=== PATIENT | female | born 1975 | race American Indian/Alaskan Native ===

== ENCOUNTER 2021-10-31 17:48 | Emergency (ER) | payer SELFPAY ==
[2021-10-31] MEDS ORDERED: ASPIRIN 325 MG TAB PO ONE (17:57)
--- NOTE | 2021-10-31 18:43 | XRay Report ---
CHEST 2 VIEWS INDICATION / CLINICAL INFORMATION: Chest pain. COMPARISON: One view of the chest from 06/25/2010. FINDINGS: SUPPORT DEVICES: None. HEART / MEDIASTINUM: No significant abnormality. LUNGS / PLEURA: No significant pulmonary abnormality. No significant pleural effusion. No pneumothora x. ADDITIONAL FINDINGS: No significant additional findings. IMPRESSION: 1. No acute abnormality of the chest. Signer Name: Michel Caban MD Signed: 10/31/2021 6:38 PM Workstation Name: [id number]
[2021-10-31 19:26] LABS: Basophils % (Auto) 0.5 % (0.0-1.8); Eosinophils % (Auto) 0.6 % (0.0-4.3); Hematocrit 36.7 % (30.3-42.9); Hemoglobin 11.7 gm/dl (10.1-14.3); Lymphocytes # (Auto) 2.1 K/mm3 (1.2-5.4); Lymphocytes % (Auto) 45.3 % (13.4-35.0); Mean Corpuscular HGB Conc 32 % (30-34); Mean Corpuscular Volume 91 fl (79-97); Monocytes # (Auto) 0.4 K/mm3 (0.0-0.8); Monocytes % (Auto) 7.7 % (0.0-7.3); Platelet Count 197 K/mm3 (140-440); Red Blood Count 4.05 M/mm3 (3.65-5.03); Red Cell Distribution Width 13.6 % (13.2-15.2)
[2021-10-31 19:32] LABS: Alanine Aminotransferase 12 units/L (7-56); Albumin 4.3 g/dL (3.9-5); Blood Urea Nitrogen 14 mg/dL (7-17); Calcium 9.6 mg/dL (8.4-10.2); Hemolysis Index 4
[2021-10-31 19:42] LABS: BUN/Creatinine Ratio 23
--- NOTE | 2021-11-01 10:33 | Electrocardiograph Report ---
[facility] Test Date: 2021-10-31 Test Time: 17:59:38 Pat Name: JAYLYN HERMOSILLO Department: Room: Gender: F [employer] Supervisor: AF : 1975 Requested By: JOVANNY NICHOLAS Order Number: [id number] Reading MD: Arcenio Thompson Measurements Intervals [place] Rate: 73 P: 55 W[place]: 151 QRS: 49 QRSD: 83 T: 42 QT: 402 QTc: 444 Interpretive Statements Sinus rhythm Consider anteroseptal infarct No previous ECG available for comparison Electronically Signed On 11-01-2021 10:32:46 EDT by Arcenio Thompson
--- NOTE | 2021-11-01 11:36 | Emergency Department Report ---
ED Chest Pain HPI - General Chief Complaint: Chest Pain Stated Complaint: CHEST PAIN, SOB Time Seen by Provider: 11/01/21 11:16 Source: patient Mode of arrival: Ambulatory Limitations: No Limitations - History of Present Illness Initial Comments: 46 yo female with h/o fibromyalgia and psoriasis presents to the emergency department complaining of substernal chest pressure, which is moderate, and intermittent, and nonradiating for the last 6 days. Starting yesterday, while at work, patient started having chest pain which was associated with shortness of breath, nausea, vomiting, and dizziness. Patient reports resolution of her symptoms, now. Patient denies previous similar symptoms. Patient was given an aspirin while in the emergency department, but denies any known other alleviating factors. Denies any known aggravating factors. - Related Data Allergies Allergy/AdvReac Type Severity Reaction Status Date / Time SEAFOOD Allergy Hives Uncoded 10/31/21 17:55 Heart Score - HEART Score History: Slightly suspicious EKG: Non-specific Age: 45-65 Risk factors: No known risk factors Troponin: < normal limit HEART Score: 2 - EKG Read Time Time EKG Completed: 17:59 (Performed on 10/31/2021) EKG Read Time: 18:05 (Read on 10/31/2021) - Critical Actions Critical Actions: 0-3 pts:0.9-1.7%risk of adverse cardiac event.Candidate for discharge ED Review of Systems ROS: Stated complaint: CHEST PAIN, SOB Other details as noted in HPI Comment: All other systems reviewed and negative Constitutional: denies: chills, fever Eyes: denies: eye pain, eye discharge, vision change ENT: denies: ear pain, throat pain Respiratory: shortness of breath, SOB at rest. denies: cough, wheezing Cardiovascular: chest pain. denies: palpitations Endocrine: no symptoms reported Gastrointestinal: denies: abdominal pain, nausea, diarrhea Genitourinary: denies: urgency, dysuria, discharge Musculoskeletal: denies: back pain, joint swelling, arthralgia Skin: denies: rash, lesions Neurological: other (Dizziness). denies: headache, weakness, paresthesias Psychiatric: denies: anxiety, depression Hematological/Lymphatic: denies: easy bleeding, easy bruising ED Past Medical Hx - Past Medical History Previous Medical History?: No Additional medical history: Psoriasis, fibromyalgia - Surgical History Past Surgical History?: No ED Physical Exam - General Limitations: No Limitations General appearance: alert, in no apparent distress - Head Head exam: Present: atraumatic, normocephalic - Eye Eye exam: Present: normal appearance, PERRL, EOMI - ENT ENT exam: Present: mucous membranes moist - Neck Neck exam: Present: normal inspection, full ROM - Respiratory Respiratory exam: Present: normal lung sounds bilaterally. Absent: respiratory distress - Cardiovascular Cardiovascular Exam: Present: regular rate, normal rhythm. Absent: systolic murmur, diastolic murmur, rubs, gallop - GI/Abdominal GI/Abdominal exam: Present: soft, normal bowel sounds - Extremities Exam Extremities exam: Present: normal inspection, other. Absent: tenderness, joint swelling, calf tenderness - Back Exam Back exam: Present: normal inspection - Neurological Exam Neurological exam: Present: alert, oriented X3 - Psychiatric Psychiatric exam: Present: normal affect, normal mood - Skin Skin exam: Present: warm, dry, intact, normal color. Absent: rash ED Course Vital Signs 10/31/21 10/31/21 17:54 17:56 Temperature 97.7 F Pulse Rate 73 Respiratory 18 Rate Blood Pressure 153/68 O2 Sat by Pulse 100 98 Oximetry - Reevaluation(s) Reevaluation #1: 11/01/21 13:54 Patient still has no complaints, and is awaiting CTA chest. ED Medical Decision Making - Lab Data Result diagrams: 10/31/21 18:27 10/31/21 18:37 - EKG Data Interpretation: other (Sinus rhythm at 73 with a Q wave in V2) - Radiology Data cta chest: IMPRESSION: 1. No CT evidence for pulmonary embolism. 2. No acute findings. Signer Name: Markell Dove Jr, MD - Medical Decision Making 46-year-old female presents with chest pain for 6 days and shortness of breath which started yesterday. Patient also complains of nausea vomiting and diaphoresis which is concerning for ACS. Vital signs have been within normal limits. Physical exam was unremarkable. EKG showed a sinus rhythm and Q waves which are concerning for anterior/septal infarct. Lab work including troponin x2 were all within normal limits. Chest x-ray did not show any acute findings. CTA was negative for pulmonary embolism or dissection. Patient continued to not have any pain while she was here, so did not receive any further medication besides aspirin. Patient was amenable to the plan to be discharged home, and to follow-up with cardiology, and was discharged home. Critical care attestation.: If time is entered above; I have spent that time in minutes in the direct care of this critically ill patient, excluding procedure time. ED Disposition Clinical Impression: Shortness of breath Chest pain Qualifiers: Chest pain type: unspecified Qualified Code(s): R07.9 - Chest pain, unspecified Disposition: 01 HOME / SELF CARE / HOMELESS Is pt being admited?: No Does the pt Need Aspirin: No Condition: Undetermined Instructions: Shortness of Breath, Adult, [id number], Nonspecific Chest Pain, Adult Referrals: PRIMARY CARE, [Primary Care Provider] - 3-5 Days CHELE HOLT MD [Staff Physician] - 3-5 Days Time of Disposition: 16:02
--- NOTE | 2021-11-01 15:08 | Cat Scan Report ---
CTA CHEST WITH CONTRAST INDICATION / CLINICAL INFORMATION: r/o pe; chest pain and shortness of breath. TECHNIQUE: Axial CT images were obtained through the chest after injection of 100 cc of Omnipaque 300 IV contrast. 3 plane MIP and/or 3D reconstructions were produced. All CT scans at this location are performed using CT dose reduction for ALARA by means of automated exposure control. COMPARISON: None available. FINDINGS: PULMONARY EMBOLUS: None. THORACIC AORTA: No significant abnormality. HEART: No significant abnormality. CORONARY ARTERY CALCIFICATION: Absent -- None. MEDIASTINUM / LA: No significant abnormality. PLEURA: No pleural effusion. No pneumothorax. LUNGS: No acute air space or interstitial disease. ADDITIONAL FINDINGS: None. UPPER ABDOMEN: No acute findings. Gastric sleeve surgical changes are suspected. SKELETAL STRUCTURES: No significant osseous abnormality. IMPRESSION: 1. No CT evidence for pulmonary embolism. 2. No acute findings. Signer Name: Markell Dove Jr, MD Signed: 11/01/2021 3:04 PM Workstation Name: [id number]
[2021-11-01 16:48] VITALS: BP 148/70
== END 2021-11-01 16:48 | disposition home or self-care (01) ==
LOC: ED 17:48
DX: R07.9 Chest pain, unspecified (principal); R06.02 Shortness of breath
CPT/HCPCS: 36415; 71046; 71275; 80053; 84484; 85025; 93005; 99284; Q9967